=== PATIENT | female | born 1985 | race African-American/Black ===

== ENCOUNTER 2019-06-05 03:48 | Emergency (ER) | payer OTHER ==
[~2019-06-05] VITALS: Ht 162.6 cm; Wt 98.9 kg
[2019-06-05] MEDS ORDERED: TRAMADOL 50 MG50 MG PO (04:45)
[2019-06-05] MEDS ORDERED: NAPROSYN500 MG PO (04:45)
[2019-06-05 05:06] VITALS: BP 121/88
== END 2019-06-05 05:07 | disposition home or self-care (01) ==
LOC: ER 03:48
DX: S16.1XXA Strain of muscle, fascia and tendon at neck level, initial encounter (principal); S80.01XA Contusion of right knee, initial encounter; S09.8XXA Other specified injuries of head, initial encounter; V48.6XXA Car passenger injured in noncollision transport accident in traffic accident, initial encounter; Y92.89 Other specified places as the place of occurrence of the external cause; Y93.89 Activity, other specified; Y99.8 Other external cause status